=== PATIENT | female | born 1950 ===

== ENCOUNTER 2017-09-12 13:03 | Emergency (ER) | payer MEDICARE, BC ==
[2017-09-12 13:20] VITALS: BP 143/89
--- NOTE | 2017-09-12 14:40 | EDM.PDOC ---
Scribed by May Henry 09/12/17 1440 for Olaf Lake MD ED HPI GENERAL MEDICAL PROBLEM - General Chief Complaint: ENT Problem Stated Complaint: HEADACHE, SORE THROAT Time Seen by Provider: 09/12/17 13:30 Source of Information: Reports: Patient, RN, RN Notes Reviewed History Limitations: Reports: No Limitations - History of Present Illness INITIAL COMMENTS - FREE TEXT/NARRATIVE: Patient with onset on , 09/09/17, of sore throat with chills. Also complains of right ear pain and mild cough with a very small amount of sputum production. Admits to frontal headache. Denies abdominal pain, nausea, vomiting , diarrhea, cough or rash. Onset Date: 09/09/17 Duration: Getting Worse Location: Reports: Other (throat) Quality: Reports: Ache Severity: Moderate Improves with: Reports: None Worsens with: Reports: None Associated Symptoms: Reports: No Other Symptoms Throat Pain Score (Numeric/FACES): 4 - Related Data Allergies Allergy/AdvReac Type Severity Reaction Status Date / Time No Known Allergies Allergy Verified 09/12/17 13:16 Home Meds: Home Meds Alendronate [Fosamax] 5 mg PO ASDIRECTED 05/19/14 [History] Doxepin HCl [Doxepin HCl] 1 tab PO BEDTIME 05/19/14 [History] FLUoxetine HCl [Fluoxetine HCl] 1 tab PO DAILY 05/19/14 [History] Letrozole [Letrozole] 1 tab PO DAILY 05/19/14 [History] Levothyroxine Sodium [Levothyroxine Sodium] 1 tab PO ASDIRECTED 05/19/14 [ History] SUMAtriptan [SUMAtriptan] 1 tab PO ASDIRECTED PRN 05/19/14 [History] Verapamil HCl [Verapamil HCl] 1 tab PO ASDIRECTED 05/19/14 [History] Past Medical History HEENT History: Reports: Impaired Vision Other HEENT History: wears contacts Cardiovascular History: Reports: None Respiratory History: Reports: None Gastrointestinal History: Reports: None Genitourinary History: Reports: Chronic Renal Insuffiency [employer] History: Reports: Neurological History: Reports: Migraines Psychiatric History: Reports: Depression Endocrine/Metabolic History: Reports: Hypothyroidism, Obesity/BMI 30+, Osteopenia Hematologic History: Reports: None Immunologic History: Reports: None Oncologic (Cancer) History: Reports: Breast ([place] 10 years ago.) Dermatologic History: Reports: None - Infectious Disease History Infectious Disease History: Reports: Chicken Pox, Measles, Mumps - Past Surgical History Head Surgeries/Procedures: Reports: None Musculoskeletal Surgical History: Reports: Knee Replacement, Shoulder Surgery Other Musculoskeletal Surgeries/Procedures:: Right knee replacement (2012) and right shoulder replacement (February 2016) Social & Family History - Family History Family Medical History: Noncontributory - Tobacco Use Smoking Status *Q: Never Smoker Second Hand Smoke Exposure: No - Caffeine Use Caffeine Use: Reports: Coffee - Alcohol Use Days Per Week of Alcohol Use: 0 - Recreational Drug Use Recreational Drug Use: No - Living Situation & Occupation Occupation: Employed ED ROS ENT - Review of Systems Review Of Systems: ROS reveals no pertinent complaints other than HPI. ED EXAM, ENT - Physical Exam Exam: See Below Exam Limited By: No Limitations General Appearance: Alert, WD/WN, No Apparent Distress Eye Exam: Bilateral Eye: Normal Inspection Ears: Other (LeftTM normal. Right TM retracted with claer air/fluid level without erythema. ) Nose: Other (inferior turbinate injected with purulent drainage.) Mouth/Throat: Other (mild pharyngeal erythema with postnasal drip. Tonsils mild to moderately swollen right greater than left. No exudates. ) Head: Atraumatic, Normocephalic Neck: Other (shoddy cervical lymphadenopathy, no nuchal rigidity. ) Respiratory/Chest: No Respiratory Distress Cardiovascular: Normal Peripheral Pulses, Regular Rate, Rhythm, No Edema, No Gallop, No JVD, No Murmur, No Rub GI/Abdominal: Other (benign obese) (Female) Exam: Deferred Rectal (Female) Exam: Deferred Back: Normal Inspection Extremities: Normal Inspection Neurological: Alert, Oriented, CN II-XII Intact, Normal Cognition, Normal Gait, Normal Reflexes, No Motor/Sensory Deficits Psychiatric: Normal Affect, Normal Mood Skin: Warm, Dry, Intact, Normal Color, No Rash Course - Vital Signs Last Recorded V/S: Last Vital Signs Temp 36.0 C 09/12/17 13:11 Pulse 70 09/12/17 13:11 Resp 16 09/12/17 13:11 BP 143/89 H 09/12/17 13:20 Pulse Ox 98 09/12/17 13:11 - Orders/Labs/Meds Orders: Active Orders 24 hr Category Date Time Status CULTURE STREP A CONFIRMATION [RM] Stat Lab 09/12/17 13:27 Results STREP SCRN A RAPID W CULT CONF [RM] Stat Lab 09/12/17 13:27 Results Labs: Rapid strep: Negative. Influenza A and B: Negative. Departure - Departure Time of Disposition: 14:27 Disposition: Home, Self-Care 01 Condition: Good Clinical Impression: Tonsillitis Sinusitis Qualifiers: Sinusitis location: unspecified location Chronicity: acute Recurrence: not specified as recurrent Qualified Code(s): J01.90 - Acute sinusitis, unspecified - Discharge Information Instructions: Tonsillitis, [id number], Sinusitis, Adult, [id number] Forms: ED Department Discharge Additional Instructions: RX: Amoxicillin 500mg. Frequent salt water gargles until improved. Follow up in clinic if not improving in 3-4 days. - My Orders Last 24 Hours: My Active Orders 09/12/17 13:27 CULTURE STREP A CONFIRMATION [RM] Stat STREP SCRN A RAPID W CULT CONF [RM] Stat - Assessment/Plan Last 24 Hours: My Active Orders 09/12/17 13:27 CULTURE STREP A CONFIRMATION [RM] Stat STREP SCRN A RAPID W CULT CONF [RM] Stat I have read and agree with the documentation that has been completed regarding this visit. By signing this record, I attest that the documentation was completed in my physical presence and is an accurate record of the encounter.
== END 2017-09-12 14:49 | disposition home or self-care (01) ==
LOC: DL.ED 13:03
DX: J03.90 Acute tonsillitis, unspecified (principal); J01.90 Acute sinusitis, unspecified; N18.9 Chronic kidney disease, unspecified; E03.9 Hypothyroidism, unspecified; E66.9 Obesity, unspecified; Z79.899 Other long term (current) drug therapy; Z68.37 Body mass index [BMI] 37.0-37.9, adult
CPT/HCPCS: 87081; 87430; 87804; 99283